=== PATIENT | female | born 1980 | race American Indian/Alaskan Native ===

== ENCOUNTER 2016-11-24 04:49 | Emergency (ER) | payer MEDICAID ==
[2016-11-24] MEDS ORDERED: TYLENOL ONE (05:43)
[2016-11-24] MEDS ORDERED: TYLENOL PO ONE (05:52)
[2016-11-24 07:12] LABS: Basophils % (Auto) 0.4 % (0.0-1.8); Eosinophils % (Auto) 4.1 % (0.0-4.3); Hematocrit 38.2 % (30.3-42.9); Hemoglobin 12.8 gm/dl (10.1-14.3); Mean Corpuscular HGB Conc 34 % (30-34); Mean Corpuscular Hemoglobin 31 pg (28-32); Mean Corpuscular Volume 92 fl (79-97); Platelet Count 253 K/mm3 (140-440); Red Blood Count 4.17 M/mm3 (3.65-5.03); Red Cell Distribution Width 13.4 % (13.2-15.2)
[2016-11-24 07:22] LABS: Bilirubin,Urine NEG (Negative); Blood,Urine NEG (Negative); Ketones,Urine NEG (Negative); Leukocyte Esterase,Urine NEG (Negative); Mucus,Urine FEW /HPF; Nitrite,Urine NEG (Negative); Protein,Urine <15 mg/dL mg/dL (Negative); Urobilinogen,Urine < 2.0 mg/dL (<2.0)
[2016-11-24 07:23] LABS: Anion Gap 18 mmol/L; Blood Urea Nitrogen 9 mg/dL (7-17); Calcium 9.3 mg/dL (8.4-10.2); Carbon Dioxide 24 mmol/L (22-30); Chloride 98.7 mmol/L (98-107); Glucose 92 mg/dL (65-100); Sodium 137 mmol/L (137-145)
--- NOTE | 2016-11-24 08:35 | Ultrasound Report ---
COMPLETE OB ULTRASOUND: Abdominal pain. Endovaginal and transabdominal imaging performed. Gestation: Betts Position: Cephalic Amniotic Fluid: wnl Placenta: Complete previa Placental Grade: 0 Heart Rate: 140 BPM Cervical length: 1.4 cm (Normal > 3 cm) x It is too early for a anatomical survey BPD: 3.46 cm = 16 w 5 d HC: 12.89 cm = 16 w 4 d AC: 11.32 cm = 17 w 1 d FL: 2.38 cm = 17 w 1 d HC/AC Ratio: 1.14 Cephalic Index: 89.4 Estimated Weight: 180 grams LMP: 08/02/16 Clinical age = 16 w 2 d EDC: 05/09/17 US Gest. Age = 16 w 6 d EDC: 05/05/17 Impression: 1. Complete previa. 2. Short cervix.
--- NOTE | 2016-11-24 09:59 | Emergency Department Report ---
Chief Complaint: Abdominal Pain Stated Complaint: ABD PAIN; 16.2 WEEKS GEST Time Seen by Provider: 11/24/16 09:57 - HPI History of Present Illness: Patient here reports that she woke up this morning with inability to urinate and lower abdominal pain. Denies any vaginal bleeding. Patient is 16 weeks . - ROS Review of Systems: All systems are negative unless stated in HPI above. - Exam Vital Signs: Vital Signs 11/24/16 11/24/16 11/24/16 04:52 04:54 09:41 Temperature 97.8 F Pulse Rate 87 93 H 84 Respiratory 16 Rate Blood Pressure 120/81 113/75 O2 Sat by Pulse 99 98 99 Oximetry Physical Exam: Gen.: This is a 36-year-old female well-nourished well-developed in no acute distress. Abdomen: No acute abdomen noted, no peritoneal signs, normal bowel sounds in all quadrants and no CVA tenderness. MSE screening note: Focused history and physical exam performed. Due to findings the following was ordered:see [facility] ED Medical Decision Making - Lab Data Result diagrams: 11/24/16 06:51 11/24/16 06:51 - Medical Decision Making MDM: Patient screened by provider in triage area. Appropriate protocol activated and patient awaiting to be seen by provider. Labs reviewed and patient without any urinary tract infection on the labs are stable. Ultrasound OB ordered. Positive hCG Quant ED Disposition for MSE Condition: Stable Instructions: Abdominal Pain (ED) Referrals: PRIMARY CARE, [Primary Care Provider] - 3-5 Days
--- NOTE | 2016-11-24 12:55 | Emergency Department Report ---
ED Female HPI - General Chief complaint: Abdominal Pain Stated complaint: ABD PAIN; 16.2 WEEKS GEST Time Seen by Provider: 11/24/16 09:57 Source: patient Mode of arrival: Ambulatory Limitations: No Limitations - History of Present Illness Initial comments: This is a 36-year-old female nontoxic, well nourished in appearance, no acute signs of distress presents to the ED complaining of difficulty urinating and pelvic pain 2 days. Patient stated she woke up with sudden onset of lower pelvic pain as well as difficulty urinating. He denies any trauma to the region denies any abdominal pain. Denies nausea, vomiting, chest pain, shortness of breath, fever, chills, stiff neck headache. Patient states she does follow up with a [employer] with normal . Patient denies any vaginal bleeding, dysuria, polyuria, hematuria, or vaginal discharge. Patient denies any allergies or past medical history. MD Complaint: pelvic pain -: Gradual, days(s) (1) Radiation: non-radiating Severity: mild Severity scale (0 -10): 3 Quality: cramping Consistency: constant Improves with: none Worsens with: none Are you Now?: Yes Last Menstrual Period: 08/03/16 EDC: 05/10/17 Associated Symptoms: abdominal pain (pelvic pain). denies: vaginal discharge, vaginal bleeding, nausea/vomiting, fever/chills, headaches, loss of appetite, dysuria, hematuria, rash, seizure, shortness of breath, syncope, weakness - Related Data Sexually active: Yes Home Medications Medication Instructions Recorded Confirmed Last Taken Ondansetron [Zofran TAB] 4 mg PO Q8HR PRN 11/24/16 11/24/16 Unknown Tablet 1 tab PO DAILY 11/24/16 11/24/16 Unknown Allergies Allergy/AdvReac Type Severity Reaction Status Date / Time No Known Allergies Allergy Verified 11/24/16 05:50 ED Review of Systems ROS: Stated complaint: ABD PAIN; 16.2 WEEKS GEST Other details as noted in HPI Constitutional: denies: chills, fever Eyes: denies: eye pain, eye discharge, vision change ENT: denies: ear pain, throat pain Respiratory: denies: cough, shortness of breath, wheezing Cardiovascular: denies: chest pain, palpitations Endocrine: no symptoms reported Gastrointestinal: denies: abdominal pain, nausea, diarrhea Genitourinary: denies: urgency, dysuria, discharge Musculoskeletal: denies: back pain, joint swelling, arthralgia Skin: denies: rash, lesions Neurological: denies: headache, weakness, paresthesias Psychiatric: denies: anxiety, depression Hematological/Lymphatic: denies: easy bleeding, easy bruising ED Past Medical Hx - Past Medical History Previous Medical History?: No - Surgical History Past Surgical History?: No - Social History Smoking Status: Never Smoker Substance Use Type: None - Medications Home Medications: Home Medications Medication Instructions Recorded Confirmed Last Taken Type Ondansetron [Zofran TAB] 4 mg PO Q8HR PRN 11/24/16 11/24/16 Unknown History Tablet 1 tab PO DAILY 11/24/16 11/24/16 Unknown History ED Physical Exam - General Limitations: No Limitations General appearance: alert, in no apparent distress - Head Head exam: Present: atraumatic, normocephalic, normal inspection - Eye Eye exam: Present: normal appearance, PERRL, EOMI. Absent: scleral icterus, conjunctival injection, nystagmus, periorbital swelling, periorbital tenderness Pupils: Present: normal accommodation - ENT ENT exam: Present: normal exam, normal orophraynx, mucous membranes moist, TM's normal bilaterally, normal external ear exam - Neck Neck exam: Present: normal inspection, full ROM. Absent: tenderness, meningismus, lymphadenopathy, thyromegaly - Respiratory Respiratory exam: Present: normal lung sounds bilaterally. Absent: respiratory distress, wheezes, rales, rhonchi, stridor, chest wall tenderness, accessory muscle use, decreased breath sounds, prolonged expiratory - Cardiovascular Cardiovascular Exam: Present: regular rate, normal rhythm, normal heart sounds. Absent: bradycardia, tachycardia, irregular rhythm, systolic murmur, diastolic murmur, rubs, gallop - GI/Abdominal GI/Abdominal exam: Present: soft, normal bowel sounds. Absent: distended, tenderness, guarding, rebound, rigid, diminished bowel sounds, hyperactive bowel sounds, hypoactive bowel sounds - Expanded GI/Abdominal Exam Expanded GI/Abdominal exam: Absent: psoas sign, obturator sign, heel tap sign, Conte's sign, Rovsing's sign, tenderness at Mcburney's Point, ascites - Rectal Rectal exam: Present: deferred - Extremities Exam Extremities exam: Present: normal inspection, full ROM, normal capillary refill. Absent: tenderness, pedal edema, joint swelling, calf tenderness - Back Exam Back exam: Present: normal inspection, full ROM. Absent: tenderness, CVA tenderness (R), CVA tenderness (L), muscle spasm, paraspinal tenderness, vertebral tenderness, rash noted - Neurological Exam Neurological exam: Present: alert, oriented X3, CN II-XII intact, normal gait, reflexes normal - Psychiatric Psychiatric exam: Present: normal affect, normal mood - Skin Skin exam: Present: warm, dry, intact, normal color. Absent: rash ED Course Vital Signs 11/24/16 11/24/16 11/24/16 04:52 04:54 09:41 Temperature 97.8 F Pulse Rate 87 93 H 84 Respiratory 16 Rate Blood Pressure 120/81 113/75 O2 Sat by Pulse 99 98 99 Oximetry - Reevaluation(s) Reevaluation #1: 11/24/16 12:55 Patient is speaking in full sentences with no signs of distress noted. - Consultations Consultation #1: 11/24/16 12:56 Dr. Aguilar was consulted about patient history and US report and agrees to the plan of care with d/c instructions and f/u within 24 hours. Consultation #2: 11/24/16 12:57 Dr. Roth was consulted at [phone] and spoke with Mid- Abi about patient history and US report. Abi (mid-) stated have the patient discharged with pelvic rest and increased hydration with 3-5 days follow-up. ED Medical Decision Making - Lab Data Result diagrams: 11/24/16 06:51 11/24/16 06:51 - Medical Decision Making ED course; this is a 36-year-old female that presents with complete previa. Patient was examined myself and patient is stable. Dr. Aguilar was consulted about patient and agrees to not do pelvic exam due to risk of bleeding and possible infection. Pt denies any vaginal bleeding or discharge. Dr. Roth was consulted at [phone] and spoke with Mid- Abi about patient history and US report. Abi (mid-) stated have the patient discharged with pelvic rest and increased hydration with 3-5 days follow-up. Patient was educated and recevied information about pelvic rest as well as complete previa. At time time of discharge, the patient does not seem toxic or ill in appearance. No acute signs of distress noted. Patient agrees to discharge treatment plan of care. No further questions noted by the patient. CBC, BMP, UA obtained and all normal. Critical care attestation.: If time is entered above; I have spent that time in minutes in the direct care of this critically ill patient, excluding procedure time. ED Disposition Clinical Impression: Placenta previa Qualifiers: Trimester: first trimester Qualified Code(s): O44.01 - Complete placenta previa NOS or without hemorrhage, first trimester Disposition: TO HOME OR SELFCARE Is pt being admited?: No Does the pt Need Aspirin: No Condition: Stable Instructions: Placenta Previa (ED), Electrolyte Supplement (By mouth) Additional Instructions: Do not perform any activities including sexual and rest your pelvic and increased hydration as discussed with you in the ED. Follow-up with your [employer] in 24 hours or symptoms such as vaginal bleeding, severe abdominal pain or any worsening symptoms return to emergency room as possible. Referrals: PRIMARY MD JOSEP [Primary Care Provider] - 3-5 Days [facility] [Outside] - 3-5 Days [facility] [place] [Outside] - 3-5 Days DAVE ROTH MD [Referring] - 24 Hours Forms: Work/School Release Form(ED)
[2016-11-24 13:58] VITALS: BP 112/58
[2016-11-25] MEDS ORDERED: NACL ONE (16:31)
== END 2016-11-24 13:50 | disposition home or self-care (01) ==
LOC: ED 04:49
DX: O44.02 Complete placenta previa NOS or without hemorrhage, second trimester (principal); Z3A.16 16 weeks gestation of pregnancy
CPT/HCPCS: 36415; 76805; 76817; 80048; 81001; 84702; 85025